=== PATIENT | male | born 1950 | race Caucasian/White ===

== ENCOUNTER 2016-09-26 06:45 | Day surgery (SDC) | payer BC ==
[2016-09-25 14:17] VITALS: BMI 24.2
[2016-09-26] MEDS ORDERED: GLYCOPYRROLATE 0.2 MG/1 ML VIAL ONE (07:49)
[2016-09-26] MEDS ORDERED: PROPOFOL 20 ML ONE ×6 (07:49)
[2016-09-26] MEDS ORDERED: SUCCINYLCHOLINE CHLORIDE 200 MG/10 ML VIAL ONE (07:49)
[2016-09-26] MEDS ORDERED: ePHEDrine SULFATE 50 MG/1 ML AMPULE ONE (07:49)
[2016-09-26] MEDS ORDERED: LIDOCAINE HCL 2% (20ML MULTI-DOSE VIAL) NR ONE (07:50)
[2016-09-26] MEDS ORDERED: PHENYLEPHRINE HCL 10 MG/1 ML SINGLE DOSE VIAL ONE (07:50)
[2016-09-26] MEDS ORDERED: ATROPINE SULFATE 1 MG/10 ML DISP.SYRIN ONE (07:50)
[2016-09-26 08:28] VITALS: TEMP 97.5
[2016-09-26 09:14] VITALS: BP 106/57; PULSE 88
--- NOTE | 2016-09-27 12:55 | PATH ---
Surgical Pathology Report Patient Name: TONEY EASTMAN [facility]. Rec. #: [id number] /Age/Gender: 1950 (Age: 66) / M Account: [id number] Location: [facility]-ENDOSCOPY Taken: 09/26/2016 Received: 09/26/2016 Reported: 09/27/2016 Physicians: Ian Brown M.D. Specimen(s) Received BX-RIGHT COLON POLYP Clinical History Family history of colon cancer, screening Diverticulosis, polyp Final Diagnosis COLON, RIGHT, FORCEP POLYPECTOMY: TUBULAR ADENOMA. Comment: Recommend correlation with clinical findings and follow up as clinically indicated. Electronically Signed Jair Neal M.D. Gross Description Received in formalin, labeled "biopsy right colon polyp" are 2 landers, irregular portions of soft tissue measuring 0.2-0.3 cm. in greatest dimension. The specimens are submitted in toto in one cassette. [facility]/09/26/2016 [facility]/09/26/2016
== END 2016-09-26 09:14 | disposition home or self-care (01) ==
LOC: JASU-ENDO 06:45
PROVIDERS: ATTEND Internal Medicine Gastroenterology
PROC: 0DBK8ZX Excision of Ascending Colon, Via Natural or Artificial Opening Endoscopic, Diagnostic (ICD-10-PCS; principal; 2016-09-26 10:00)
DX: Z12.11 Encounter for screening for malignant neoplasm of colon (principal); Z80.0 Family history of malignant neoplasm of digestive organs; D12.2 Benign neoplasm of ascending colon; K57.30 Diverticulosis of large intestine without perforation or abscess without bleeding; K64.8 Other hemorrhoids
CPT/HCPCS: 88305-TC

== ENCOUNTER 2023-02-21 04:12 | Day surgery (SDC) | payer OTHER ==
[2023-02-20 11:53] VITALS: BMI 23.8
[2023-02-21] MEDS ORDERED: ROPIVACAINE HCL 0.5% 30ML VIAL ONE (09:51)
[2023-02-21] MEDS ORDERED: DEXAMETHASONE SOD PHOSPHATE 10 MG/1 ML VIAL ONE (09:51)
[2023-02-21] MEDS ORDERED: MIDAZOLAM HCL 2 MG/2 ML SINGLE DOSE VIAL ONE (09:52)
[2023-02-21] MEDS ORDERED: SUCCINYLCHOLINE CHLORIDE 200 MG/10 ML SYRINGE ONE (10:13)
[2023-02-21] MEDS ORDERED: PROPOFOL 40 ML ONE (10:13)
[2023-02-21] MEDS ORDERED: oxyCODONE HCL 5 MG TABLET PO PRN (10:40)
[2023-02-21] MEDS ORDERED: ONDANSETRON 4 MG/2 ML VIAL IVPUSH PRN (10:40)
[2023-02-21] MEDS ORDERED: ACETAMINOPHEN 325 MG TABLET (FP) PO PRN (10:40)
[2023-02-21] MEDS ORDERED: LACTATED RINGERS SOLUTION 1,000 ML IV SCH ×2 (10:45→12:15)
[2023-02-21] MEDS ORDERED: ceFAZolin SODIUM 1 GM VIAL IVPB ONE (10:55)
[2023-02-21 14:46] VITALS: BP 134/59; PULSE 76; RESP 20; TEMP 97
== END 2023-02-21 14:54 | disposition home or self-care (01) ==
LOC: JASU-SURG 04:12
PROVIDERS: ATTEND Orthopaedic Surgery
PROC: 0LM14ZZ Reattachment of Right Shoulder Tendon, Percutaneous Endoscopic Approach (ICD-10-PCS; principal; 2023-02-21 10:45)
DX: M75.41 Impingement syndrome of right shoulder (principal); M75.101 Unspecified rotator cuff tear or rupture of right shoulder, not specified as traumatic
CPT/HCPCS: 82962; 94760; C1713; J1100

== ENCOUNTER 2023-05-18 04:41 | Day surgery (SDC) | payer BC, OTHER ==
[2023-05-15 15:34] VITALS: BMI 23.9
[2023-05-18 07:20] VITALS: TEMP 97.7
[2023-05-18] MEDS ORDERED: MIDAZOLAM HCL 2 MG/2 ML SINGLE DOSE VIAL ONE (08:02)
[2023-05-18 09:23] VITALS: PULSE 70
[2023-05-18 09:42] VITALS: BP 120/62; RESP 19
== END 2023-05-18 09:33 | disposition home or self-care (01) ==
LOC: JASU-ENDO 04:41
PROVIDERS: ATTEND Internal Medicine Gastroenterology
PROC: 0DB98ZX Excision of Duodenum, Via Natural or Artificial Opening Endoscopic, Diagnostic (ICD-10-PCS; 2023-05-18)
PROC: 0DB68ZX Excision of Stomach, Via Natural or Artificial Opening Endoscopic, Diagnostic (ICD-10-PCS; 2023-05-18)
PROC: 0DBP8ZX Excision of Rectum, Via Natural or Artificial Opening Endoscopic, Diagnostic (ICD-10-PCS; principal; 2023-05-18 08:00)
DX: Z12.11 Encounter for screening for malignant neoplasm of colon (principal); D12.8 Benign neoplasm of rectum; K64.8 Other hemorrhoids; K57.30 Diverticulosis of large intestine without perforation or abscess without bleeding; Z86.010 Personal history of colon polyps; K29.50 Unspecified chronic gastritis without bleeding
CPT/HCPCS: 88305-TC; 88342-TC